=== PATIENT | male | born 1985 | race Caucasian/White ===

== ENCOUNTER 2024-06-24 11:06 | Emergency (ER) | payer OTHER ==
[~2024-06-24] VITALS: Ht 193 cm; Wt 129.7 kg
[2024-06-24] MEDS ORDERED: Tdap Vaccine 0.5 ML SYR (Adult Vaccine) IM ONE (11:50)
[2024-06-24] MEDS ORDERED: CIPRO500 MG PO (11:50)
== END 2024-06-24 12:20 | disposition home or self-care (01) ==
LOC: ED 11:06
DX: S91.332A Puncture wound without foreign body, left foot, initial encounter (principal); W22.8XXA Striking against or struck by other objects, initial encounter; Y93.89 Activity, other specified; Y92.89 Other specified places as the place of occurrence of the external cause; Y99.8 Other external cause status

== ENCOUNTER 2024-07-22 19:08 | Emergency (ER) | payer OTHER ==
[~2024-07-22] VITALS: Ht 193 cm; Wt 132.0 kg
[~2024-07-22 19:08] MED LIST: CIPRO500 MG PO
[2024-07-22] MEDS ORDERED: Pantoprazole Sodium 40 MG VIAL IV ONE (19:45)
[2024-07-22] MEDS ORDERED: Ketorolac Tromethamine 30 MG/ML VIAL IV ONE (19:45)
[2024-07-22] MEDS ORDERED: Ondansetron Hydrochloride 4 MG/2 ML VIAL IV ONE (19:45)
[2024-07-22] MEDS ORDERED: SODIUM CHLORIDE 0.9% 500 ML IV ONE (19:45)
[2024-07-22 20:05] LABS: BASO % 0.3 % (0.0-1.0); EOS % 0.3 % (1.0-4.0); MEAN CELL VOLUME 90.4 fl (80.0-94.0); MEAN CORPUSCULAR HGB CONC 33.2 g/dl (33.0-37.0); MEAN PLATELET VOLUME 9.6 fl (9.6-12.3); MONO # 0.6 10*3/uL (0.1-1.0); MONO % 8.9 % (3.0-9.0); NEUT # 4.5 10*3/uL (2.3-7.9); NEUT % 67.1 % (47.0-73.0); PLATELET COUNT AUTOMATED 267 10*3/uL (130-400); RED CELL DISTRI WIDTH 12.5 % (0-14.5); WHITE BLOOD COUNT 6.8 10*3/uL (4.8-10.8)
[2024-07-22 20:34] LABS: ALKALINE PHOSPHATASE 101 U/L (46-116); BUN 15 mg/dl (9-23); CHLORIDE 104 mmol/L (98-107); LIPASE 34 U/L (12-53); SGPT/ALT 50 U/L (5-49)
[2024-07-22] MEDS ORDERED: METHOCARBAMOL 750 MG TAB PO ONE (20:40)
[2024-07-22] MEDS ORDERED: METHOCARBAMOL750 M1 PO (20:49)
[2024-07-22] MEDS ORDERED: Ondansetron4 MG PO (20:49)
[2024-07-22] MEDS ORDERED: REGLAN10 M1 PO (20:49)
== END 2024-07-22 21:17 | disposition home or self-care (01) ==
LOC: ED 19:08
PROVIDERS: Emergency Medicine
DX: S70.362A Insect bite (nonvenomous), left thigh, initial encounter (principal); A08.4 Viral intestinal infection, unspecified; R11.2 Nausea with vomiting, unspecified; W57.XXXA Bitten or stung by nonvenomous insect and other nonvenomous arthropods, initial encounter; Y93.89 Activity, other specified; Y92.89 Other specified places as the place of occurrence of the external cause; Y99.8 Other external cause status

== ENCOUNTER 2024-09-22 09:38 | Emergency (ER) | payer OTHER ==
[~2024-09-22] VITALS: Ht 193 cm; Wt 133.9 kg
[~2024-09-22 09:38] MED LIST changes: +METHOCARBAMOL750 M1 PO; +Ondansetron4 MG PO; +REGLAN10 M1 PO
[2024-09-22] MEDS ORDERED: AMOX-CLAV 875-1 EACH PO (10:41)
== END 2024-09-22 10:53 | disposition home or self-care (01) ==
LOC: ED 09:38
DX: H60.93 Unspecified otitis externa, bilateral (principal)